=== PATIENT | female | born 1980 | race Hispanic/Latino ===

== ENCOUNTER 2018-01-11 08:40 | Emergency (ER) | payer OTHER ==
[~2018-01-11 08:40] MED LIST: IBUPROFEN800 MG PO; PERCOCET 325 MG1 TA2 PO
[2018-01-11 08:46] VITALS: BP 113/75
--- NOTE | 2018-01-11 08:59 | ED INFLUENZA/URI COMPLAINT ---
History of Present Illness General Chief Complaint: Upper Respiratory Sx/Fever Stated Complaint: UPPER RESP INFECTION Source: patient Exam Limitations: no limitations Vital Signs & Intake/Output Vital Signs & Intake/Output Vital Signs Date Time Temp Pulse Resp B/P B/P Pulse O2 O2 Flow FiO2 Mean Ox Delivery Rate 01/11 1047 Room Air Room Air 01/11 1009 98 01/11 0846 99.1 90 18 113/75 98 Room Air Allergies Uncoded Allergies: SOAP (UNKNOWN 08/03/11) Reconcile Medications Albuterol Sulfate (Proventil Hfa) 90 MCG HFA.AER.AD 2 PUF INH Q4 PRN shortness of breath Ibuprofen 800 MG TABLET 800 MG PO Q6P PRN PAIN SCALE 4-6 OXYCODONE HCL/ACETAMINOPHEN (Percocet 5-325 MG Tablet) 325 MG/5 MG TAB 1 TAB PO Q4P PRN PAIN SCALE 7-8 Prednisone (Deltasone) 20 MG TABLET 2 TAB PO DAILY wheezing Triage Note: 37F REPORTS URI SYMPTOMS WITH RHINORRHEA AND SNEEZING SINCE SUNDAY AND CHEST CONGESTION. +BODY ACHES, MILD SORE THROAT, CLEAR PRODUCTIVE COUGH. +SICK CONTACTS AT WORK Triage Nurses Notes Reviewed? yes Onset: Gradual Duration: day(s): Timing: recent history Severity: moderate : No Patient currently breastfeeds: No HPI: 37YO female presents to ED complaining of nasal congestion and rhinorrhea beginning 4 days ago. Patient reports chest congestion, sneezing, cough productive of clear sputum beginning within the past few days. Patient states she is having trouble breathing d/t increasing congestion. She has not taken any medications for her current symtpoms. Patient also reports generalized malaise, body aches. The patient denies nausea, vomiting, diarrhea, sore throat. (Khadijah WATERMAN,Liana Coats) Past History Travel History Traveled to [place] past 21 day No Medical History Any Pertinent Medical History? 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 No (Liana Beck) Review of Systems Review of Systems Constitutional: Reports: see HPI. EENTM: Reports: see HPI. Respiratory: Reports: see HPI. Cardiovascular: Reports: no symptoms. GI: Reports: no symptoms. Genitourinary: Reports: no symptoms. Musculoskeletal: Reports: no symptoms. Skin: Reports: no symptoms. Neurological/Psychological: Reports: no symptoms. Hematologic/Endocrine: Reports: no symptoms. Immunologic/Allergic: Reports: no symptoms. All Other Systems: Reviewed and Negative (Liana Beck) Physical Exam Physical Exam General Appearance: well developed/nourished, no apparent distress, alert, awake Head: atraumatic, normal appearance Eyes: Bilateral: normal appearance. Ears, Nose, Throat: normal ENT inspection, moist mucous membrane, hearing grossly normal, Tympanic normal, pharynx normal Neck: normal inspection, supple, full range of motion Respiratory: no respiratory distress, bilateral inspiratory and expiratory wheezing Cardiovascular: regular rate/rhythm Back: normal inspection, normal range of motion Extremities: normal inspection, normal range of motion Neurologic/Psych: awake, alert, oriented x 3 Skin: intact, normal color, warm/dry Core Measures Sepsis Present: No Sepsis Focused Exam Completed? No (Liana Beck) Progress Differential Diagnosis: influenza, otitis, pneumonia, pharyngitis, sinusitis, bronchitis, asthma Plan of Care: Orders Procedure Date/time Status RAPID VIRAL INFLUENZA A 01/11 0923 Complete EKG 01/11 0844 Active URINE 01/11 0842 Complete URINALYSIS 01/11 0842 Complete Laboratory Tests 01/11/18 0851: Urine Color YEL, Urine Clarity HAZY H, Urine pH 6.0, Ur Specific [place] 1.020, Urine Protein NEG, Urine Ketones NEG, Urine Nitrite NEG, Urine Bilirubin NEG, Urine Urobilinogen 0.2, Ur Leukocyte Esterase TRACE H, Ur Microscopic SEDIMENT EXAMINED, Urine RBC 5-10 H, Urine WBC 1-3 H, Ur Epithelial Cells FEW, Urine Bacteria FEW H, Urine Hemoglobin MOD H, Urine Glucose NEG, Urine Test NEGATIVE Microbiology 01/11 1020 NASOPHARYN: Influenza Virus A & B Rapid Smear - COMP Patient was medicated with DuoNeb here in the emergency department for wheezing. She does report improvement in her symptoms after DuoNeb. On repeat lung exam her wheezing has diminished. Patient's chest x-ray shows no evidence of pneumonia. Her EKG is stable. Symptoms are likely related to upper respiratory tract infection, most likely viral given negative chest x-ray. There is a suspicion for bronchitis given patient's wheezing and cough with clear phlegm. We will initiate steroids for wheezing and albuterol inhaler. Patient has a primary care doctor Jethro whom she can follow-up with next week. Strict return precautions were given, the patient agrees with plan of care. She is in no acute distress, vital signs are stable. Diagnostic Imaging: Viewed by Me: Radiology Read. Discussed w/RAD: Radiology Read. CXR Impression: PATIENT: JOE MCCOY PRESENT AGE: 37 PATIENT ACCOUNT NO: [id number] : 81 LOCATION: [facility] ORDERING PHYSICIAN: Liana WATERMAN SERVICE DATE: 01/11/18 EXAM TYPE: RAD - XRY-CHEST XRAY, TWO VIEWS EXAMINATION: XR CHEST CLINICAL INFORMATION: Cough, chest congestion COMPARISON: None TECHNIQUE: 2 views of the chest were obtained. FINDINGS: Cardiac and mediastinal silhouette is within normal limits. Lungs are symmetric expanded. There are no pleural effusions or pneumothorax. No focal consolidation. No acute osseous abnormality. IMPRESSION: No evidence of focal consolidation. DICTATED BY: Ever Peres MD DATE/TIME DICTATED:01/11/181025 PRINCIPAL DEVELOPER:OUMOU DATE/TIME TRANSCRIBED:01/11/181025 CONFIDENTIAL, DO NOT COPY WITHOUT APPROPRIATE AUTHORIZATION. <Electronically signed in Other Vendor System> SIGNED BY: Ever Peres MD 01/11/18 1030 Initial ED EKG: sinus rhythm @81bpm, nonspecific ST changes (Khadijah WATERMAN,Liana Coats) Departure Departure Disposition: HOME OR SELF CARE Condition: Stable Clinical Impression Primary Impression: Wheezing Secondary Impressions: Nasal congestion Referrals: Patient Has No Primary Care Dr (PCP/Family) Additional Instructions: Begin inhaler as prescribed for wheezing. You were also given a course of steroids to take to help with your breathing. Follow-up with your primary care doctor for further evaluation. Return if Worsening or persistent symptoms. Please note that there might be incidental findings in your evaluation that are unrelated to the current emergency department visit. Please notify your primary care doctor about this emergency department visit in order to obtain and review all of the testing performed so that these incidental findings can be monitored as needed. If you had an x-ray performed, please understand that some fractures may not be seen on the initial set of x-rays. If your symptoms persist you might need a repeat set of x-rays to check for such a fracture. If you had a laceration evaluated, please understand that foreign bodies such as glass or wood may not be visible to the naked eye or on plain x-rays. If the wound becomes red, swollen, increasingly more painful or if there is any drainage from the wound, please have it reevaluated by a physician for the possibility of a retained foreign body. If you're unable to follow up as outlined in the discharge instructions please return to the emergency department. Thank you for choosing the [facility] Emergency Department for your care. It was a pleasure to serve you today. Departure Forms: Customer Survey General Discharge Information Prescriptions: Current Visit Scripts Albuterol Sulfate (Proventil Hfa) 2 PUF INH Q4 PRN shortness of breath #1 INHAL Prednisone (Deltasone) 2 TAB PO DAILY #10 TAB (Khadijah WATERMAN,Liana Coats) PA/[employer] Co-Sign Statement Statement: ED Attending supervision documentation- [] I saw and evaluated the patient. I have also reviewed all the pertinent lab results and diagnostic results. I agree with the findings and the plan of care as documented in the PA's/[employer]'s documentation. [X] I have reviewed the ED Record and agree with the PA's/[employer]'s documentation. [] Additions or exceptions (if any) to the PAs/[employer]'s note and plan are summarized below: [] (Asim Russell DO
--- NOTE | 2018-01-11 10:30 | RADIOLOGY REPORT ---
EXAMINATION: XR CHEST CLINICAL INFORMATION: Cough, chest congestion COMPARISON: None TECHNIQUE: 2 views of the chest were obtained. FINDINGS: Cardiac and mediastinal silhouette is within normal limits. Lungs are symmetric expanded. There are no pleural effusions or pneumothorax. No focal consolidation. No acute osseous abnormality. IMPRESSION: No evidence of focal consolidation.
[2018-01-11] MEDS ORDERED: PROVENTIL HFA6.7 GM INH (10:53)
[2018-01-11] MEDS ORDERED: DELTASONE20 MG PO (10:53)
== END 2018-01-11 10:58 ==
LOC: ERH 08:40
DX: R06.2 Wheezing (principal); R09.81 Nasal congestion; J34.89 Other specified disorders of nose and nasal sinuses; R53.81 Other malaise; M79.1 Myalgia
CPT/HCPCS: 71046; 81001; 81025; 87804; 87804-59; 93005; 93010